=== PATIENT | male | born 1970 | race African-American/Black ===

== ENCOUNTER 2017-05-12 18:09 | Emergency (ER) | payer OTHER ==
[~2017-05-12 18:09] MED LIST: FLEXERIL10 MG PO; IBUPROFEN PO; IBUPROFEN800 MG PO; VICODIN 5/1 TAB 5/50 PO; VOLTAREN75 MG PO
== END 2017-05-12 20:38 | disposition home or self-care (01) ==
LOC: CED 18:09
DX: R20.2 Paresthesia of skin (principal); I10 Essential (primary) hypertension; Z98.890 Other specified postprocedural states; F17.200 Nicotine dependence, unspecified, uncomplicated
CPT/HCPCS: 82947; 99284